=== PATIENT | female | born 1995 | race American Indian/Alaskan Native ===

== ENCOUNTER 2017-03-16 19:30 | Emergency (ER) | payer SELFPAY | END 2017-03-16 20:44 | disposition left against medical advice (07) | LOC: E/R 19:30 | DX: Z53.21 Procedure and treatment not carried out due to patient leaving prior to being seen by health care provider (principal) ==

== ENCOUNTER 2017-03-18 17:20 | Emergency (ER) | payer OTHER ==
[~2017-03-18] VITALS: Ht 152.4 cm; Wt 56.0 kg
[2017-03-18 17:21] VITALS: Ht 152.4 cm; Wt 56.0 kg
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
[2017-03-18] MEDS ORDERED: ACETAMINOPHEN 325 MG TAB PO ONE (18:30)
[2017-03-18] MEDS ORDERED: ACET500C5 PO (18:43)
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
[2017-03-18 20:11] VITALS: BP 126/78; PULSE 81; RESP 18; TEMP 98.2
== END 2017-03-18 20:12 | disposition home or self-care (01) ==
LOC: FTE 17:20
DX: S39.92XA Unspecified injury of lower back, initial encounter (principal); V89.2XXA Person injured in unspecified motor-vehicle accident, traffic, initial encounter
CPT/HCPCS: 72100; Z7502; Z7610